=== PATIENT | male | born 1955 | race Caucasian/White ===

== ENCOUNTER 2024-02-12 12:36 | Emergency (ER) | payer MEDICARE ==
[~2024-02-12] VITALS: Ht 182.9 cm; Wt 110.5 kg
[2024-02-12 12:48] VITALS: TEMP 98.1
[2024-02-12] MEDS ORDERED: ATOR40TA71 PO (12:48)
[2024-02-12] MEDS ORDERED: TAMS0.4C94 PO (12:48)
[2024-02-12] MEDS ORDERED: LOSA1TAB37 PO (12:48)
[2024-02-12] MEDS: SODIUM CHLORIDE 0.9% 1,000 ML IV ONE (13:11)
[2024-02-12 13:22] LABS: BASOPHILS % (AUTO) 0.3 % (0.0-2.0); EOSINOPHILS % (AUTO) 0.5 % (1.0-6.0); HEMOGLOBIN 15.9 g/dL (13.5-17.5); LYMPHOCYTES # (AUTO) 0.8 K/uL (1.0-4.8); LYMPHOCYTES % (AUTO) 6.7 % (22.0-44.0); MEAN CORPUSCULAR HEMOGLOBIN 29.8 pg (26.0-34.0); MEAN CORPUSCULAR VOLUME 90 fL (80-100); MONOCYTES # (AUTO) 0.9 K/uL (0.1-1.0); MONOCYTES % (AUTO) 7.1 % (2.0-9.0); NEUTROPHILS # (AUTO) 10.8 K/uL (1.8-7.7); NEUTROPHILS % (AUTO) 85.4 % (40.0-70.0); PLATELET COUNT (AUTO) 165 K/uL (150-450); RED BLOOD CELL COUNT(AUTO) 5.32 MIL/uL (4.50-5.90); RED CELL DISTRIBUTION WIDTH 13.7 % (11.5-14.5); WHITE BLOOD COUNT (AUTO) 12.6 K/uL (4.5-11.0)
[2024-02-12 13:26] LABS: CALCIUM, TOTAL 9.8 mg/dL (8.8-10.5); CREATININE 1.23 mg/dL (0.60-1.30); POTASSIUM 4.3 mmol/L (3.5-5.1)
[2024-02-12 13:36] LABS: TROPONIN I-HIGH SENSITIVITY 8 ng/L (<76)
[2024-02-12 13:51] LABS: ALBUMIN 3.8 g/dL (3.4-5.0); BILIRUBIN,TOTAL 0.8 mg/dL (0.1-1.0); MAGNESIUM 2.2 mg/dL (1.80-2.40); TOTAL PROTEIN, SERUM 7.7 g/dL (6.4-8.2)
[2024-02-12 14:46] VITALS: BP 134/76; PULSE 71; RESP 18
[2024-02-12 15:46] LABS: TROPONIN I-HIGH SENSITIVITY 10 ng/L (<76)
== END 2024-02-12 16:34 | disposition left against medical advice (07) ==
LOC: EMS 12:36
DX: I95.9 Hypotension, unspecified (principal); T67.5XXA Heat exhaustion, unspecified, initial encounter; E86.0 Dehydration; I10 Essential (primary) hypertension; X58.XXXA Exposure to other specified factors, initial encounter; Y93.89 Activity, other specified; Y92.89 Other specified places as the place of occurrence of the external cause; Y99.8 Other external cause status
CPT/HCPCS: 99285; 96360; 71045; 80053; 82550; 83735; 83880; 84484; 85025; 36415; 93005; J7030